=== PATIENT | male | born 1945 | race Caucasian/White ===

== ENCOUNTER 2024-04-23 10:38 | Outpatient (CLI) | payer MEDICARE ==
[~2024-04-23 10:38] MED LIST: iohexol 300mg/ml 100ml inj. ONE; iohexol 350MG/ML 100ml bottle IV ONE
== END 2024-04-23 23:59 | disposition home or self-care (01) ==
LOC: RAD 10:38
PROVIDERS: ATTEND Physician Assistant
DX: K44.9 Diaphragmatic hernia without obstruction or gangrene (principal); I70.0 Atherosclerosis of aorta; I71.00 Dissection of unspecified site of aorta; Z90.49 Acquired absence of other specified parts of digestive tract
CPT/HCPCS: 71275; 74174; Q9967